=== PATIENT | male | born 1945 | race Caucasian/White ===

== ENCOUNTER 2016-07-11 21:47 | Emergency (ER) | payer MEDICARE, MEDICAID ==
[~2016-07-11] VITALS: Ht 182.9 cm; Wt 81.8 kg
[2016-07-11 22:00] VITALS: BP 120/72; PULSE 72; RESP 20; O2SAT 97
--- NOTE | 2016-07-11 22:07 | ED.REPORT ---
HPI-Syncope Date of Service Jul 11, 2016 ED Provider: Davy Cortes MD Patient is a 71 year old male with a history of hypertension and hemorrhagic CVA who presents to the ED via EMS after was found passed out at a local bar this evening. The patient admits to drinking alcohol tonight. On scene it was unclear if the patient passed out due to alcohol intoxication or if there was another cause of his syncopal episode. There was some concern that the patient was weak when woken by EMS, especially due to his history of a hemorrhagic stroke. Patient denies a headache, neck pain, or sustaining any injuries. The patient states that he also smoked marijuana that was "home grown, good stuff" in addition to consuming alcohol tonight. The patient denies any other drug use. Nursing Notes Stated Complaint: SYNCOPAL EPISODE Chief Complaint: Neuro Symptoms/ Deficits Nursing Notes Reviewed: Yes Allergies: Uncoded Allergies: BLOOD PRESSURE MED (Allergy, Unknown, "its in my record", some bp med, ) General Time Seen by Provider: 22:39 Chief Complaint Became unresponsive Hx Obtained From: Patient Arrived By: Ambulance Onset Occurred: Just prior to arrival Symptom Duration: Since onset Severity: Current: No pain currently Severity: Maximum: No pain Recent Healthcare: No recent doctor visit, No recent hospitalization Similar Sx Previous: No Past Medical History Past Medical History 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 Physical Exam Initial Vital Signs Vital Signs (First) Date Time Temp Pulse Resp B/P Pulse Ox O2 Delivery O2 Flow Rate FiO2 07/11/16 22:00 36.5 72 20 120/72 97 Room Air Initial VS: Reviewed, Vital signs normal Head / Eyes: Atraumatic, Normocephalic, PERRL ENT: Conjunctiva normal, No scleral icterus Neck: Supple, Non-tender, Full range of motion Upper Extremities: Vascular intact, Neuro intact, No swelling, No tenderness Skin: Warm, Dry, No cyanosis Psychiatric: Mood/affect normal, Behavior normal, Normal thought content General/Constitutional: Awake, Alert, No acute distress Behavior: Negative: Appears intoxicated Respiratory / Chest: Breath sounds NL, Breath sounds = bilat, No respiratory distress, No rales, No rhonchi, No wheezing Cardiovascular: Heart rate NL, Heart sounds NL, No gallop, No murmurs, No rubs Heart Rate / Rhythm: Positive: Irregular rhythm (occasional PACs) Lower Extremity / Pelvis / MS: No deformity, Neurologic intact, Vascular intact Neurologic: Oriented X3, Speech NL, No motor deficits, No sensory deficits, CN II - XII intact Interpretation & Diagnostics Interpretation & Diagnostics: Breathalyzer: 0.105 Lab Results Interpretation Result Diagram: 07/11/16214907/11/162149 Test 07/11/16 21:50 White Blood Count 10.6th/mm3 (3.8-10.1) Red Blood Count 4.28mil/mm3 (4.40-5.80) Hemoglobin 13.5g/dL (13.8-17.2) Hematocrit 39.3% (41.0-50.0) Mean Corpuscular Volume 91.8fL (81-100) Mean Corpuscular Hemoglobin 31.5pg (27.0-35.0) Mean Corpuscular Hemoglobin Concent 34.4% (32.0-37.0) Red Cell Distribution Width 13.0% (12.3-15.4) Platelet Count 308bil/L (150-400) Neutrophils (%) (Auto) 52.8% (40-74) Lymphocytes (%) (Auto) 30.5% (14-46) Monocytes (%) (Auto) 12.7% (4-12) Eosinophils (%) (Auto) 2.4% (0-5) Basophils (%) (Auto) 1.1% (0-3) Sodium Level 132mEq/L (134-144) Potassium Level 3.7mEq/L (3.5-5.2) Chloride Level 95mEq/L (97-108) Carbon Dioxide Level 16mmol/L (18-29) Blood Urea Nitrogen 17mg/dL (8-27) Creatinine 1.46mg/dL (0.76-1.27) Estimat Glomerular Filtration Rate 51mL/min (>59) Glucose Level 134mg/dL (60-99) Calcium Level 8.9mg/dL (8.5-10.1) Magnesium Level 2.1mg/dL (1.6-2.6) Total Bilirubin 0.3mg/dL (0.0-1.2) Aspartate Amino Transf (AST/SGOT) 17U/L (0-50) Alanine Aminotransferase (ALT/SGPT) 18U/L (0-44) Alkaline Phosphatase 33U/L (25-160) Total Protein 7.5g/dL (6.4-8.4) Albumin 4.8g/dL (3.4-5.0) Lab values outside NL range: no clinical significance. Lab Results Interpretation: Multiple minor abnormalities. ECG Interpretation ECG Interpretation: Sinus rhythm, Rate 68 PACs Time: 23:00 Interpreted by: ED physician X-Ray Chest Interpretation Chest Xray Interpretation: Impression: No acute cardiopulmonary process. View: Portable Interpretation / Wet Read by: Wet read ED physician CT Head Interpretation CONCLUSION: No acute intracranial abnormality. Radiologist: Adán Curtis MD 07/11/2016 - 10:27:14 PM PST Study: Head CT no contrast Interpretation / Wet Read by: Interpret - ED physician Re-Eval/Medical Decision Med Decision/Clinical Course 71-year-old male who passed out on the barstool. There was no traumatic fall. He is not on blood thinners. He denies other sedating medications. His alcohol level was 0.107 by breathalyzer. His exam is totally normal. He has some PACs and PVCs but no higher grade arrhythmias noted. Chest x-ray is normal. He is not interested in staying for further evaluation. He is being discharged home with instructions to cut back on his drinking. Source of Hx: Old records Re-Evaluation/Progress : Time of Eval: 22:41 Patient Status: Condition improved Re-Evaluation/Progress Note: Patient was informed that the CT scan of his head was normal. No acute problems found on labs. Patient is awake and alert. Patient reports that he has been out of his amlodipine for the past week. He also takes Metroprolol tartrate. Patient understands and agrees with the plan to be discharged home. Discharge instructions and follow-up discussed. All questions were addressed. Return to the ED warnings given. Counseled Regarding: Diagnosis, Lab results, Need for follow-up, When/why to return to ED Discharge & Departure Impression: Primary Impression: Syncope Syncope type: unspecified Qualified Code: R55 - Syncope and collapse Additional Impression: Alcohol intoxication Complication of substance-induced condition: uncomplicated Qualified Code: F10.120 - Alcohol abuse with intoxication, uncomplicated Disposition: Home Discharge Condition All VS Reviewed: Yes Condition: Stable Patient Instructions: Syncope (ED) Additional Instructions: Labs and CT scan are normal. No dangerous cause of passing out (syncope) is found. I suspect that this is a combination of alcohol intoxication and other things. Recommend that you get back on your blood pressure medicine as soon as possible. Referrals: Seven Lehman MD (PCP) Scribe Attestation Portions of this note were transcribed by Steffanie Zamarripa. I, Dr. Cortes personally performed the history, physical exam and medical decision-making; I reviewed and confirmed the accuracy of the information in the transcribed note. Signed by: Michael Eddy, 07/11/2016 [id number] copies to: Seven Lehman MD, Howard L MD Jul 11, 2016 22:07 Steffanie Zamarripa Jul 11, 2016 22:22
[2016-07-11 22:27] LABS: BASOPHILS % (AUTO) 1.1 % (0-3); EOSINOPHILS % (AUTO) 2.4 % (0-5); MONOCYTES % (AUTO) 12.7 % (4-12); Mean Corpuscular Hemoglobin 31.5 pg (27.0-35.0); Mean Corpuscular Volume 91.8 fL (81-100); NEUTROPHILS % (AUTO) 52.8 % (40-74); Platelet Count 308 bil/L (150-400)
[2016-07-11 22:37] LABS: Magnesium 2.1 mg/dL (1.6-2.6)
[2016-07-11 22:50] VITALS: BP 166/79; PULSE 66; PULSE 68; RESP 16; O2SAT 96; O2SAT 98
--- NOTE | 2016-07-12 08:27 | DRSVH ---
PROCEDURE: CT BRAIN WITHOUT CONTRAST ([id number]) INDICATIONS: syncope, hx bleed, EtOH TECHNIQUE: Noncontrast 4.5 mm thick angled axial sections acquired from the foramen magnum to the vertex, with c oronal reformats. COMPARISON: [facility], CT, BRAIN W/O CONTRAST, 03/07/2011, 11:33. FINDINGS: Image quality: Excellent. CSF spaces: Basal cisterns are patent. No extra-axial fluid collections. The ventricles are symmet marshall in size and shape. Brain: No intracranial bleeds or masses. There is cerebral volume loss for age, with resultant vent ricular and sulcal prominence. There are periventricular and deep white matter chronic small vessel ischemic changes. There is intracranial internal carotid artery and vertebral artery atherosclerosis . Skull and face: Right frontal and right parietal shawn hole's are noted. The visualized facial bones a ppear intact, without suspicious lesions. Sinuses: Visualized sinuses and mastoids are clear. IMPRESSION: No acute intracranial disease process. Dictated by: Shavonne Hernandez MD, PhD on 07/12/2016 at 8:23 Approved by: Shavonne Hernandez MD, PhD on 07/12/2016 at 8:26
--- NOTE | 2016-07-12 09:16 | DRSVH ---
PROCEDURE: X-RAY CHEST ONE VIEW, PORTABLE ([id number]) INDICATIONS: syncope TECHNIQUE: One view of the chest was acquired. COMPARISON: [facility] [place], CR, CHEST 2VW, 02/06/2011, 13:41. FINDINGS: Surgical changes and devices: None. Lungs and pleura: No pleural effusions or pneumothorax. Lungs are clear. Mediastinum: Mediastinal contours appear normal. Heart size is normal. Bones and chest wall: No suspicious bony lesions. Overlying soft tissues appear unremarkable. Heal ed left rib fracture deformities are redemonstrated IMPRESSION: No acute cardiopulmonary disease. Dictated by: Gregory Melendrez RR Interpreted: Shavonne Hernandez MD on 07/12/2016 at 9:15 Transcribed by: JOSE on 07/12/2016 at 9:16 Approved by: Shavonne Hernandez MD, PhD on 07/12/2016 at 17:01
== END 2016-07-11 23:00 | disposition home or self-care (01) ==
LOC: SED 21:47
DX: R55 Syncope and collapse (principal); F10.120 Alcohol abuse with intoxication, uncomplicated; I11.9 Hypertensive heart disease without heart failure; I48.91 Unspecified atrial fibrillation; F17.200 Nicotine dependence, unspecified, uncomplicated; Z86.73 Personal history of transient ischemic attack (TIA), and cerebral infarction without residual deficits